=== PATIENT | female | born 1940 | race Hispanic/Latino ===

== ENCOUNTER 2017-12-26 07:30 | Day surgery (SDC) | payer MEDICARE, OTHER ==
[~2017-12-26 07:30] MED LIST: NACL 0.9% 1000 ML 1,000 ML IV SCH
[2017-12-26] MEDS ORDERED: VANCOMYCIN/NS 1 GM/250 ML 1 GM/250 ML BAG IV NR (09:00)
[2017-12-26 09:10] LABS: Basophils % (Auto) 0.5 % (0.0-1.8); Eosinophils # (Auto) 0.1 K/mm3 (0.0-0.4); Eosinophils % (Auto) 1.4 % (0.0-4.3); Hematocrit 34.4 % (30.3-42.9); Hemoglobin 11.6 gm/dl (10.1-14.3); Lymphocytes % (Auto) 16.4 % (13.4-35.0); Mean Corpuscular HGB Conc 34 % (30-34); Mean Corpuscular Hemoglobin 30 pg (28-32); Mean Corpuscular Volume 87 fl (79-97); Monocytes # (Auto) 0.5 K/mm3 (0.0-0.8); Monocytes % (Auto) 8.9 % (0.0-7.3); Platelet Count 206 K/mm3 (140-440); Red Blood Count 3.94 M/mm3 (3.65-5.03); Red Cell Distribution Width 13.5 % (13.2-15.2)
[2017-12-26 09:27] LABS: BUN/Creatinine Ratio 23; Blood Urea Nitrogen 16 mg/dL (7-17); Calcium 9.6 mg/dL (8.4-10.2); Hemolysis Index 5
[2017-12-26 09:28] LABS: INR 0.99 (0.87-1.13); Partial Thromboplastin Time 29.5 Sec. (24.2-36.6)
[2017-12-26] MEDS ORDERED: VERSED ONE (10:04)
[2017-12-26] MEDS ORDERED: HEPARIN 10,000 UNITS/10 ML ONE (10:05)
[2017-12-26] MEDS ORDERED: HEPARIN/NS 5000 UNIT/500ML(CATH LAB) 1,000 ML IR ONE (10:05)
[2017-12-26] MEDS ORDERED: XYLOCAINE 2% INFILTRATI ONE (10:05)
[2017-12-26] MEDS ORDERED: SUBLIMAZE ONE (10:05)
[2017-12-26] MEDS ORDERED: ANCEF/STERILE WATER 2 GM/20 ML 0 GM/0 ML SYRINGE IV ONE (10:06)
[2017-12-26] MEDS ORDERED: TORADOL ONE (10:47)
[2017-12-26 13:36] VITALS: BP 131/55
[2017-12-26] MEDS ORDERED: PERCOCET 5/325 PO ONE (13:54)
--- NOTE | 2017-12-26 16:40 | Short Stay Summary ---
Short Stay Documentation Date of service: 12/26/17 - History Principal diagnosis: venous hypertension from compression of vein H&P: obtained from office - Allergies and Medications Current Medications: Allergies Penicillins Allergy (Verified 12/26/17 11:53) Headache Sulfa (Sulfonamide Antibiotics) Allergy (Verified 12/26/17 11:53) HIVES IN MOUTH Home Medications Medication Instructions Recorded Confirmed Last Taken Type Aspirin [Adult Low Dose Aspirin EC] 81 mg PO DAILY 12/26/17 12/26/17 12/25/17 History 81mg Atenolol [Tenormin] 25 mg PO DAILY 12/26/17 12/26/17 12/26/17 History 25mg Biotin 5,000 mcg PO DAILY 12/26/17 12/26/17 12/25/17 History 5000mcg Calcium 600-D3 Plus Caplet 1 cap PO DAILY 12/26/17 12/26/17 12/25/17 History 1 Esomeprazole Magnesium [NexIUM] 40 mg PO DAILY 12/26/17 12/26/17 12/25/17 History 40mg Levothyroxine Sodium [Unithroid] 50 mcg PO DAILY 12/26/17 12/26/17 12/25/17 History 50mcg Turmeric Root Extract [Turmeric] 1 cap PO DAILY 12/26/17 12/26/17 12/25/17 History 1 oxyCODONE /ACETAMINOPHEN [Percocet 1 tab PO Q6HR PRN #20 tablet 12/26/17 Unknown Rx 5/325] - Brief post op/procedure progress note Date of procedure: 12/26/17 Pre-op diagnosis: venous hypertension for compression vein Post-op diagnosis: same Procedure: Bilateral lower extremity venogram, intravascular ultrasound, venoplasty with stent placement Anesthesia: local Surgeon: ZAHIDA PATHAK Estimated blood loss: minimal Pathology: none Condition: stable - Disposition Condition at discharge: Good Disposition: [id number] TO HOME OR SELFCARE Short Stay Discharge Plan Activity: advance as tolerated Weight Bearing Status: Weight Bear as Tolerated Diet: regular Wound: keep clean and dry, per your surgeon's advice Follow up with: MEAGAN RICHARDS MD [Primary Care Provider] - 7 Days Forms: Post Arteriogram Instruct Prescriptions: oxyCODONE /ACETAMINOPHEN [Percocet 5/325] 1 tab PO Q6HR PRN #20 tablet PRN Reason: Pain
--- NOTE | 2017-12-26 16:45 | Operative Report ---
Operative Report Operative Report: Exam: Bilateral lower extremity venogram, intravascular ultrasound, venoplasty with stent placement Clinical indication: Venous hypertension secondary to extrinsic compression of vein Date: 12/26/2017 Procedure: Following an explanation of the risks, benefits and alternatives; written informed consent was obtained. The patient was brought to the angiographic suite and placed in supine position on the examination table. Initial ultrasound evaluation of her femoral veins proximally demonstrated patent femoral veins. The patient's bilateral groins were prepped and draped in usual sterile fashion. 1% lidocaine was used for anesthesia. Under ultrasound guidance, the right femoral vein proximally was cannulated with a 7 cm 18-gauge needle. A 0.035 guidewire was advanced centrally. The needle was removed and a 5 [place] sheath placed. Access to the left proximal femoral vein was obtained in a similar fashion and an additional 5 [place] sheath placed. Angiography performed through the sheaths demonstrated significant extrinsic compression of the right external iliac vein and left common iliac vein. Additionally, the left external iliac vein demonstrates compression. A decision was made to proceed further with a neurovascular ultrasound. Intravascular ultrasound was performed to the right sheath from the IVC to the sheath insertion site. Imaging vessels include the IVC, right common femoral vein, right external iliac vein and right common iliac vein. Her vascular ultrasound was then performed from the left sheath from the IVC to the sheath insertion site. Imaged vessels included the left common femoral vein, left external iliac vein and left common femoral vein. This demonstrates 60% stenosis involving the right external iliac vein, 70% stenosis involving the left common iliac vein and 60% separate stenosis involving the left external iliac vein. Following upsizing of the sheaths, treatment of the stenoses was performed using kissing 14 x 90 mm wall stents placed from just distal to the bifurcation to the external iliac veins to exclude the lesion on the right as well as both lesions on the left. The stents were seated using 14 mm balloons insufflated to 2 addison. Post stent deployment imaging demonstrated brisk flow throughout the imaged pelvic veins with residual less than 10% stenosis The catheters, guidewires and she's were removed and hemostasis achieved using manual compression. Sterile dressings were then applied. The patient tolerated the procedure well. There were no immediate post procedure complications. Conscious sedation was performed under the guidance of radiologic nursing. Continuous cardiopulmonary monitoring was utilized. Impression: 1) Bilateral lower extremity venogram demonstrating compression of the right external iliac vein, left common iliac vein and left external iliac vein. 2) Intravascular ultrasound with imaging obtained from the IVC, right common iliac vein, right external iliac vein, right common femoral vein, left common iliac vein, left external iliac vein and left common femoral vein demonstrating 60% stenosis of the right external iliac vein, 70% stenosis of the left common iliac vein and 60% separate stenosis involving the left external iliac vein. 3) Treatment of the above-mentioned lesions with stents as described with residual less than 10% stenosis.
== END 2017-12-26 14:31 | disposition home or self-care (01) ==
LOC: CATHLABREC 07:30
PROVIDERS: ATTEND Radiology Diagnostic Radiology
DX: I87.1 Compression of vein (principal); I87.303 Chronic venous hypertension (idiopathic) without complications of bilateral lower extremity; E78.00 Pure hypercholesterolemia, unspecified; K21.9 Gastro-esophageal reflux disease without esophagitis; M19.90 Unspecified osteoarthritis, unspecified site; E03.9 Hypothyroidism, unspecified; Z86.2 Personal history of diseases of the blood and blood-forming organs and certain disorders involving the immune mechanism; Z88.0 Allergy status to penicillin; Z88.2 Allergy status to sulfonamides; Z86.718 Personal history of other venous thrombosis and embolism; Z90.710 Acquired absence of both cervix and uterus; Z98.890 Other specified postprocedural states; Z79.899 Other long term (current) drug therapy; Z79.82 Long term (current) use of aspirin; Z98.42 Cataract extraction status, left eye; Z98.41 Cataract extraction status, right eye
CPT/HCPCS: 36415; 37238; 37239; 37252; 37253; 75822; 76937; 80048; 85025; 85610; 85730; C1725; C1753; C1769; C1876; C1894; J1644; J1885; J2250; J3010; J7030; J0690; J3370; Q9967